=== PATIENT | male | born 1970 | race Hispanic/Latino ===

== ENCOUNTER 2020-10-25 06:55 | Day surgery (SDC) | payer OTHER ==
[2020-10-25] VITALS (17 sets, daily range): BP systolic 98–129; BP diastolic 59–85
[~2020-10-25] VITALS: Ht 172.7 cm; Wt 117.1 kg
[~2020-10-25 06:55] MED LIST: ASPI-1443 PO; ATOR40TA69 PO; CLINDAMYCIN 600 MG/D5% WATER 50 ML IV SCH; CLOP75TA32 PO; LACTATED RINGERS 1000ML 1,000 ML IV SCH; SOTA80TA PO
[2020-10-25] MEDS ORDERED: CLINDAMYCIN 600 MG/D5% WATER 50 ML IV ONE (09:02)
[2020-10-25] MEDS ORDERED: LIDOCAINE HCL-MPF 1% 5ML AMP IJ ONE (09:13)
[2020-10-25] MEDS ORDERED: PROPOFOL 1000 MG/100 ML 0 ML IV ONE (09:13)
[2020-10-25] MEDS ORDERED: FENTANYL CITRATE PF 50 MCG/1 ML 2ML VIAL ONE (09:13)
[2020-10-25] MEDS ORDERED: PROPOFOL 10 MG/ML 20ML VIAL IV ONE ×2 (09:14→09:58)
[2020-10-25] MEDS ORDERED: MIDAZOLAM HCL 1 MG/ML 2ML VIAL ONE (09:14)
[2020-10-25] MEDS ORDERED: ROCURONIUM 10MG/1ML SYR 10 MG/ML ML ONE (09:14)
[2020-10-25] MEDS ORDERED: EPHEDRINE SULFATE 50 MG/ML AMPULE ONE (09:35)
[2020-10-25] MEDS ORDERED: BUPIVACAINE/EPI/PF 0.5% 30ML VIAL IJ ONE (09:37)
[2020-10-25] MEDS ORDERED: MEPERIDINE-PF 25 MG/ML SYG ONE ×2 (10:31→10:39)
== END 2020-10-25 12:00 | disposition home or self-care (01) ==
LOC: DAH 06:55
PROVIDERS: ATTEND Orthopaedic Surgery
DX: S83.232A Complex tear of medial meniscus, current injury, left knee, initial encounter (principal); M23.332 Other meniscus derangements, other medial meniscus, left knee; M22.42 Chondromalacia patellae, left knee; Z20.822 Contact with and (suspected) exposure to COVID-19; I25.10 Atherosclerotic heart disease of native coronary artery without angina pectoris; I25.2 Old myocardial infarction; E66.01 Morbid (severe) obesity due to excess calories; I10 Essential (primary) hypertension; E78.00 Pure hypercholesterolemia, unspecified; Z95.5 Presence of coronary angioplasty implant and graft; Z88.0 Allergy status to penicillin; Z68.35 Body mass index [BMI] 35.0-35.9, adult; X58.XXXA Exposure to other specified factors, initial encounter; Y93.89 Activity, other specified; Y92.89 Other specified places as the place of occurrence of the external cause; Y99.8 Other external cause status
CPT/HCPCS: 29881; 87635; A4215; A4216; A4221; A4222; A4223 ×2; A4606; A4649 ×3; A4663; A5120; A6223; A6260; C9803; J2175 ×2; J2250; J2704; J3010; J3490 ×4; J7120